=== PATIENT | male | born 1985 | race Caucasian/White ===

== ENCOUNTER 2019-01-07 20:13 | Emergency (ER) | payer SELFPAY ==
[~2019-01-07] VITALS: Ht 172.7 cm; Wt 61.0 kg
[2019-01-07] MEDS ORDERED: IBUPROFEN 800MG TABLET PO ONE (21:15)
[2019-01-07 23:05] VITALS: BP 128/69
== END 2019-01-07 23:06 | disposition home or self-care (01) ==
LOC: ER 20:13
DX: M25.561 Pain in right knee (principal); F12.10 Cannabis abuse, uncomplicated; F17.200 Nicotine dependence, unspecified, uncomplicated; Z98.890 Other specified postprocedural states; Z88.6 Allergy status to analgesic agent
CPT/HCPCS: 73562; 99283; L1830